=== PATIENT | male | born 1960 | race Caucasian/White ===

== ENCOUNTER 2025-03-25 16:38 | Emergency (ER) | payer OTHER, SELFPAY ==
[2025-03-25 16:39] VITALS: BP 117/71
[2025-03-25 18:03] VITALS: BP 105/87; BP 118/77; BP 99/69; PULSE 65; PULSE 71; PULSE 73
--- NOTE | 2025-03-25 18:03 | ED.GENMED ---
History of Present Illness
General
Chief Complaint: Fainting/Passed Out
Time Seen by Provider: 03/25/25 17:32
Past History
Past History
ED Past Medical History: None
ED Past Surgical History: Other
Social History
Tobacco: Non-smoker
Alcohol: Occasional
Drug: None
Personal:
Living: with family
Employment: Employed
Family History
Family History: Other
Course
Orders/Labs/Results
Orders:
Orders
03/25/25 16:44
EKG [Electrocardiogram (*1)] Urgent
Reason for Study: Syncope
EKG- Treatment ONCE
03/25/25 17:59
Orthostatic VS- Treatment ONCE
Vital Signs
Initial and Last Documented VS:
Initial Vital Signs
Temp Pulse Resp BP Pulse Ox
36.4 C 59 18 117/71 99
03/25/25 16:39 03/25/25 16:39 03/25/25 16:39 03/25/25 16:39 03/25/25 16:39
Last Documented Vital Signs
Temp Pulse Resp BP Pulse Ox
36.4 C 59 18 117/71 99
03/25/25 16:39 03/25/25 16:39 03/25/25 16:39 03/25/25 16:39 03/25/25 16:39
*Pulse Oximetry
SaO2: 99
Oxygen Mode of Delivery: Room air
ED Attending Note
-
Portions of this chart may have been created with voice recognition software.� Occasional wrong word or��sound alike� substitutions may have occurred due to the inherent limitations of voice recognition software.
Discharge Plan
Departure
Prescriptions:
No Action
duloxetine 60 MG capsule,delayed release(DR/EC)
60 mg PO HS
tramadol 50 MG tablet
50 mg PO BIDPRN PRN (Reason: moderate pain)
ascorbic acid (vitamin C) [Vitamin C] 500 MG tablet
500 mg PO DAILY
zinc 50 MG tablet
50 mg PO DAILY
vit C-[place] [id number] 1 CAP capsule
1 cap PO BIDPRN PRN (Reason: COUGH)
cholecalciferol (vitamin D3) 1,000 UNITS tablet
1,000 units PO DAILY
multivitamin with folic acid [Tab-A-Alicia] 1 TABLET tablet
1 tab PO DAILY
nystatin 5 ML suspension
5 ml PO QID Qty: 1 0RF
Rx Instructions:
use for one more week
lidocaine [Aspercreme (lidocaine)] 1 PATCH adhesive patch,medicated
1 patch topical DAILY Qty: 28 0RF
Rx Instructions:
use on both shoulders to help with pain
polyethylene glycol 3350 17 GRAMS powder in packet
17 grams PO DAILY Qty: 14 0RF
furosemide 80 MG tablet
80 mg PO DAILY Qty: 14 0RF
dexamethasone 2 MG tablet
1 - 3 mg PO DAILY Qty: 9 0RF
Rx Instructions:
Take 3mg (1.5 tabs) x 2 days, 2mg (1 tab) x 3 days, 1mg (1/2 tab) x 3 days then stop
guaifenesin [Mucus Relief ER] 600 MG tablet extended release 12hr
600 mg PO Q12 Qty: 14 0RF
Referrals:
Jagdish Castanon MD [Family Provider, Family Practice]
Interventions
Interventions:
*General Assessment Last Done: 03/25/25 17:32
*Neglect/Abuse Screening Last Done: 03/25/25 17:32
*ED- Fall Risk Assessment Last Done: 03/25/25 17:32
*ED COVID-19 Vaccine History Last Done: 03/25/25 16:39
*ED Influenza Vaccine History Last Done: 03/25/25 16:39
ED- Cardiac Assessment Last Done: 03/25/25 17:31
ED- Neurological Assessment Last Done: 03/25/25 17:31
Discharge Date and Time
Print Language: CROATIAN
--- NOTE | 2025-03-25 18:25 | ED.GENMED ---
History of Present Illness
General
Chief Complaint: Fainting/Passed Out
Source: patient
Exam Limitations: none
Time Seen by Provider: 03/25/25 17:32
Nursing documentation reviewed up to this point in time: agreed with
History of Present Illness
History of Present Illness:
Patient is a 64-year-old male with history hypertension who presents to the emergency department after near syncopal event after blood donation. Patient states that he experienced a few near syncopal events shortly after donating blood this
afternoon. He states that he was seated in a chair eating snacks/water after the donation when he became very lightheaded and dizzy. His states that he seemed to 'zoned out'. He then had a few similar occurrences when going from sitting to
standing. They laid him on the ground and called 911 for transportation to the emergency department. He did not fall, hit his head, or sustain any injuries.
Patient states that while in the ambulance he was given some IV fluids and feels significantly better. He denies any current lightheadedness or dizziness.
He denies any preceding chest pain, shortness of breath, headache, numbness/weakness prior to near syncope earlier today. He has donated blood in the past without any difficulty.
He does note that he did not have much to eat or drink today prior to blood donation.
Past History
Past History
ED Past Medical History: None
ED Past Surgical History: Other
Social History
Tobacco: Non-smoker
Alcohol: Occasional
Drug: None
Personal:
Living: with family
Employment: Employed
Family History
Family History: Other
Review of Systems
Review of Systems
Allergies reviewed?: Yes
All Other Systems: ROS reviewed and negative except as documented in HPI and ROS
Phy Exam
Physical Exam
Physical Exam:
Vitals: Patient's vital signs are stable.
General: Patient is well appearing, no acute distress
Skin: Warm and dry, no rashes or lesions
Head: Normocephalic, atraumatic
Eyes: Sclera nonicteric. EOMs intact. No nystagmus.
Throat: Protecting airway
Neck: Normal ROM, no cervical spine tenderness, no meningismus
Cardiac: Regular rate and rhythm, no murmurs.
Pulm: Normal respiratory effort. Lungs clear
Extremities: No evidence of cyanosis or edema. Strength 5/5 in bilateral upper and lower extremities
Neuro: AAOx3. Grossly intact
Psychiatric: Normal affect.
Course
Orders/Labs/Results
Orders:
Orders
03/25/25 16:44
EKG [Electrocardiogram (*1)] Urgent
Reason for Study: Syncope
EKG- Treatment ONCE
03/25/25 17:59
Orthostatic VS- Treatment ONCE
Vital Signs
Initial and Last Documented VS:
Initial Vital Signs
Temp Pulse Resp BP Pulse Ox
97.5 F 59 18 117/71 99
03/25/25 16:39 03/25/25 16:39 03/25/25 16:39 03/25/25 16:39 03/25/25 16:39
Last Documented Vital Signs
Temp Pulse Resp BP Pulse Ox
97.5 F 59 18 117/71 99
03/25/25 16:39 03/25/25 16:39 03/25/25 16:39 03/25/25 16:39 03/25/25 18:25
MDM/Problems Addressed
Differential Diagnosis Includes:
Not limited to: Vasovagal near syncope, acute dehydration, orthostatic hypotension, hypoglycemia, anemia, cardiac arrhythmia, etc.
MDM/Problems Addressed:
64-year-old male presenting after near syncope event following blood donation today. Preceded by lightheadedness/dizziness. No chest pain or shortness of breath. Patient was given IV fluids in EMS and is feeling better.
Vitals as above. On exam, patient appears well and in no distress. Cardio/pulmonary assessment unremarkable. He is neurologically intact and perfusing well.
EKG was obtained on arrival which revealed sinus bradycardia without evidence of acute ischemia or arrhythmia.
Overall impression is likely vasovagal near syncope from blood draw versus orthostatic hypotension/dehydration. May have been episode of hypoglycemia however patient's blood sugar was checked in EMS and was normal. patient is feeling better after
IV fluids. I recommended obtaining lab work to evaluate for any evidence of anemia or electrolyte abnormalities however patient declines. He is aware that we could be missing laboratory abnormalities which could result in poor outcome.
Patient states he feels much better and is requesting discharge home. His orthostatic vital signs are normal. He is hemodynamically stable. Will discharge home with advice to stay well-hydrated, follow balanced diet, and follow-up with primary
care. Strict return precautions discussed.
Chronic conditions affecting care:
N/A
Acute Exacerbation and/or Progression of Chronic Illness:
N/A
*Pulse Oximetry
SaO2: 99
Oxygen Mode of Delivery: Room air
Patient hypoxic: no
*EKG
Interpreted by ED Provider?: Yes
Interpretation: abnormal
Comparison EKG: no changes
Heart Rate: 56
Rate: bradycardiac
Rhythm: sinus
[place]: normal axis
Interval: normal QT interval
QRS Pattern: normal QRS
Ischemia: no ischemia
*Dope Firer Interpretation
Rate: Dope Firer- N/A
*Critical Care Note
Total Time (30-74mins, 75-104mins- exclusive of procedures): Not Applicable
ED Attending Note
-
Portions of this chart may have been created with voice recognition software.� Occasional wrong word or��sound alike� substitutions may have occurred due to the inherent limitations of voice recognition software.
Discharge Plan
Departure
Patient Disposition: Home (Routine Discharge)
Date of Disposition: 03/25/25
Time of Disposition: 18:12
Patient with high blood pressure during this ER visit?: No
Condition: Good
Discharge Problem:
Near syncope
Instructions: Syncope (fainting) (DC)
Prescriptions:
No Action
duloxetine 60 MG capsule,delayed release(DR/EC)
60 mg PO HS
tramadol 50 MG tablet
50 mg PO BIDPRN PRN (Reason: moderate pain)
ascorbic acid (vitamin C) [Vitamin C] 500 MG tablet
500 mg PO DAILY
zinc 50 MG tablet
50 mg PO DAILY
[id number] 1 CAP capsule
1 cap PO BIDPRN PRN (Reason: COUGH)
cholecalciferol (vitamin D3) 1,000 UNITS tablet
1,000 units PO DAILY
multivitamin with folic acid [Tab-A-Alicia] 1 TABLET tablet
1 tab PO DAILY
nystatin 5 ML suspension
5 ml PO QID Qty: 1 0RF
Rx Instructions:
use for one more week
lidocaine [Aspercreme (lidocaine)] 1 PATCH adhesive patch,medicated
1 patch topical DAILY Qty: 28 0RF
Rx Instructions:
use on both shoulders to help with pain
polyethylene glycol 3350 17 GRAMS powder in packet
17 grams PO DAILY Qty: 14 0RF
furosemide 80 MG tablet
80 mg PO DAILY Qty: 14 0RF
dexamethasone 2 MG tablet
1 - 3 mg PO DAILY Qty: 9 0RF
Rx Instructions:
Take 3mg (1.5 tabs) x 2 days, 2mg (1 tab) x 3 days, 1mg (1/2 tab) x 3 days then stop
guaifenesin [Mucus Relief ER] 600 MG tablet extended release 12hr
600 mg PO Q12 Qty: 14 0RF
Referrals:
Jagdish Castanon MD [Family Provider, Family Practice] - Follow up in 5-7 days
Activity Restrictions/Additional Instructions:
RETURN TO THE EMERGENCY DEPARTMENT WITH ANY CHEST PAIN, SHORTNESS OF BREATH, PERSISTENT DIZZINESS OR LIGHTHEADEDNESS, SIGNIFICANT WEAKNESS OR FATIGUE, WORSENING IN CURRENT SYMPTOMS, OR ANY OTHER CONCERNS
- I suspect your symptoms were likely due to a vasovagal near syncope from blood donation. You did decline lab work today in the emergency department.
- It is important to stay well-hydrated. Eat a balanced diet. Continue to take all of your medications as prescribed.
- Please check your blood pressure once daily and follow-up with your primary care provider for further evaluation/management
Monitor your symptoms closely and return to the emergency department with any acute worsening/ new symptoms or any other concerns
Interventions
Interventions:
*Risk Screen - Suicide Last Done: 03/25/25 18:15
*General Assessment Last Done: 03/25/25 17:32
*Neglect/Abuse Screening Last Done: 03/25/25 17:32
*ED- Fall Risk Assessment Last Done: 03/25/25 17:32
*ED COVID-19 Vaccine History Last Done: 03/25/25 16:39
*ED Influenza Vaccine History Last Done: 03/25/25 16:39
*Nursing Disposition Last Done: 03/25/25 18:15
ED- Cardiac Assessment Last Done: 03/25/25 17:31
ED- Neurological Assessment Last Done: 03/25/25 17:31
Discharge Date and Time
Discharge Date/Time: 03/25/25 18:15
Print Language: KENYAN
== END 2025-03-25 18:15 | disposition home or self-care (01) ==
LOC: EMR 16:38
PROVIDERS: EMERGENCY PHYSICIAN Emergency Medicine; FAMILY PHYSICIAN Family Medicine
DX: R55 Syncope and collapse (principal); I10 Essential (primary) hypertension
CPT/HCPCS: 99283; 93005